=== PATIENT | male | born 1995 | race Caucasian/White ===

== ENCOUNTER 2016-06-03 17:23 | Emergency (ER) | payer MEDICAID ==
[~2016-06-03] VITALS: Ht 193 cm; Wt 81.6 kg
[2016-06-03 17:39] VITALS: BP_SYST 113
[2016-06-03] MEDS ORDERED: IBUPROFEN 800 MG TABLET PO ONE (18:00)
[2016-06-03 18:45] VITALS: BP_SYST 110
== END 2016-06-03 18:45 | disposition home or self-care (01) ==
LOC: SED 17:23
DX: R51 Headache (principal); Z88.0 Allergy status to penicillin; V89.2XXA Person injured in unspecified motor-vehicle accident, traffic, initial encounter; Y93.89 Activity, other specified; Y99.8 Other external cause status; Y92.89 Other specified places as the place of occurrence of the external cause
CPT/HCPCS: 70150-TC; 99284